=== PATIENT | male | born 1955 | race Caucasian/White ===

== ENCOUNTER → 2019-12-11 | Day surgery (SDC) | payer MEDICARE ==
[~2019-12-11] MED LIST: ACET325T9 PO; ALLO300T PO; CRESTOR20 MG PO; IBUP200T58 PO; IPRATRPIUM/ALBUTEROL 0.5/2.5MG 3 ML NEBU. NEB PRN; IV RINGERS SOLUTION,LACTATED 1,000 ML IV SCH; ONDANSETRON PF 4 MG/2 ML VIAL. IV PRN; PROPOFOL 10,000 MCG/ML (20ML) VIAL IV ONE
[2019-12-11 12:37] VITALS: BP 146/84
--- NOTE | 2019-12-13 16:06 | PATHOLOGY ---
[facility] Accession Number: [id number] . 01 Material submitted: . PART A: colon - ASCENDING COLON POLYP. Modifiers: ascending PART B: colon - TRANSVERSE COLON POLYP. Modifiers: transverse . 01 Clinical history: . None provided . 02 Diagnosis: A. Colon biopsies, ascending colon polyp: - Tubular adenomas. . B. Colon biopsies, transverse colon polyp: - Tubular adenomas. (JPM:florentino; 12/13/2019) S 12/13/2019 0929 Local . 02 Comment: There is no high grade dysplasia or evidence of malignancy. (JPM:florentino; 12/13/2019) . 02 Electronically signed: . Hira Price MD, Pathologist NPI- [id number] . 01 Gross description: . A. The specimen is received in formalin, labeled "Milan Minor, ascending colon polyp". Received are multiple (greater than 10) segments of pale sheldon soft tissue ranging in size from 0.3 to 0.8 cm in maximum dimensions. The specimen is submitted entirely in cassette A1. . B. The specimen is received in formalin, labeled "Milan Minor, transverse colon polyp". Received are four segments of pale sheldon soft tissue ranging in size from 0.3 to 0.5 cm in maximum dimensions. The specimen is submitted entirely in cassette B1. (CAA; 12/12/2019) QAC/QAC 12/12/2019 1648 Local . 02 Pathologist provided ICD-10: D12.2, D12.3 . 02 CPT . 623053, 893631 Specimen Comment: A courtesy copy of this report has been sent to [phone] Specimen Comment: 0 Specimen Comment: Report sent to / DR RAMÍREZ Performed at: 01 [facility] [address], [place], [place] [id number] MD Berry Thomas MD Phone: [phone] Performed at: 02 [facility] [place] [address] [place], [place] [id number] MD Hira Price MD Phone: [phone]
== END | disposition home or self-care (01) ==
LOC: SURG 09:47
PROVIDERS: ATTEND Internal Medicine Gastroenterology
DX: Z12.11 Encounter for screening for malignant neoplasm of colon (principal); D12.2 Benign neoplasm of ascending colon; D12.3 Benign neoplasm of transverse colon; K63.89 Other specified diseases of intestine; K57.30 Diverticulosis of large intestine without perforation or abscess without bleeding; Z79.899 Other long term (current) drug therapy
CPT/HCPCS: 45385; J2704; U0003-CS